=== PATIENT | female | born 1980 | race Caucasian/White ===

== ENCOUNTER 2018-05-14 14:38 | Emergency (ER) | payer OTHER, MEDICAID ==
[2018-05-14] MEDS: HYDROMORPHONE HCL 0.5 MG/ 0.5 ML SYRINGE (J1170 PER 1) IV ×2 (16:26→17:33)
[2018-05-14] MEDS: ONDANSETRON 4MG/2ML VIAL (J2405) IV (16:26)
[2018-05-14] MEDS: NS 1,000 ML IV (16:26)
[2018-05-14 16:35] LABS: HEMATOCRIT 38.5 % (36.0-47.0); HEMOGLOBIN 12.1 g/dl (12.0-15.5); MEAN CORPUSCULAR HEMOGLOBIN 31.1 pg (27.0-33.0); MEAN CORPUSCULAR HGB CONC 31.4 g/dl (32.0-36.5); PLATELET COUNT, AUTOMATED 375 10^3/uL (150-450); RED BLOOD COUNT 3.89 10^6/uL (4.00-5.40); RED CELL DISTRIBUTION WIDTH 13.8 % (11.5-14.5); WHITE BLOOD COUNT 7.7 10^3/uL (4.0-10.0)
[2018-05-14 17:02] LABS: ANION GAP 8 MEQ/L (8-16); BLOOD UREA NITROGEN 9 MG/DL (7-18); CALCIUM LEVEL 8.9 MG/DL (8.5-10.1); CARBON DIOXIDE LEVEL 26 MEQ/L (21-32); CHLORIDE LEVEL 108 MEQ/L (98-107); CREATININE FOR GFR 0.61 MG/DL (0.55-1.30); GLOMERULAR FILTRATION RATE > 60.0 (>60); GLUCOSE, FASTING 85 MG/DL (70-100); POTASSIUM SERUM 4.3 MEQ/L (3.5-5.1); SODIUM LEVEL 142 MEQ/L (136-145)
== END 2018-05-14 18:19 | disposition home or self-care (01) ==
LOC: M ED 14:38
DX: R51 Headache (principal); Z98.2 Presence of cerebrospinal fluid drainage device
CPT/HCPCS: J2405

== ENCOUNTER 2018-05-22 19:01 | Emergency (ER) | payer OTHER ==
[2018-05-22] MEDS: NS 1,000 ML IV (19:45)
[2018-05-22] MEDS: HYDROMORPHONE HCL 0.5 MG/ 0.5 ML SYRINGE (J1170 PER 1) IV ×2 (20:17→21:16)
[2018-05-22] MEDS: PROMETHAZINE INJ 25 MG/ML VIAL (J2550) IV (20:17)
[2018-05-22] MEDS: diphenhydrAMINE INJ 50MG/ML VIAL (J1200) IV (20:18)
[2018-05-22] MEDS: OXYCODONE/APAP 5MG/325MG(BULK FOR ED) 1 TABLET PO (22:30)
== END 2018-05-22 22:39 | disposition home or self-care (01) ==
LOC: M ED 19:01
DX: R51 Headache (principal); Z98.2 Presence of cerebrospinal fluid drainage device; G91.9 Hydrocephalus, unspecified; G93.89 Other specified disorders of brain; Z79.899 Other long term (current) drug therapy; Z88.6 Allergy status to analgesic agent; Z88.5 Allergy status to narcotic agent; Z88.8 Allergy status to other drugs, medicaments and biological substances
CPT/HCPCS: J1200

== ENCOUNTER 2018-05-31 15:42 | Emergency (ER) | payer OTHER ==
[2018-05-31 17:03] LABS: KETONE, URINE AUTO RFX NEGATIVE (NEGATIVE); NITRITE, URINE AUTO RFX NEGATIVE (NEGATIVE); RBC, URINE AUTO RFX 0 /HPF (0-3); SPECIFIC GRAVITY UR AUTO RFX 1.004 (1.002-1.035); SQUAM EPITHELIAL CELL UR AURFX 1 /HPF (0-6)
[2018-05-31] MEDS: diphenhydrAMINE INJ 50MG/ML VIAL (J1200) IV (17:06)
[2018-05-31 17:07] LABS: LEUKOCYTE ESTERASE UR AUTO RFX 2+ (NEGATIVE); WBC, URINE AUTO RFX 12 /HPF (0-3)
[2018-05-31] MEDS: NS 1,000 ML IV (17:07)
[2018-05-31] MEDS: HYDROMORPHONE HCL 0.5 MG/ 0.5 ML SYRINGE (J1170 PER 1) IV (17:12)
== END 2018-05-31 17:43 | disposition home or self-care (01) ==
LOC: M ED 15:42
DX: N30.90 Cystitis, unspecified without hematuria (principal); R51 Headache; F33.9 Major depressive disorder, recurrent, unspecified; G91.9 Hydrocephalus, unspecified; N80.9 Endometriosis, unspecified; Z98.2 Presence of cerebrospinal fluid drainage device; Z79.899 Other long term (current) drug therapy; Z79.3 Long term (current) use of hormonal contraceptives; Z88.1 Allergy status to other antibiotic agents; Z88.8 Allergy status to other drugs, medicaments and biological substances
CPT/HCPCS: J1200

== ENCOUNTER 2018-06-07 12:24 | Emergency (ER) | payer OTHER ==
[2018-06-07] MEDS: diazePAM 10 MG TAB PO (15:26)
== END 2018-06-07 15:52 | disposition home or self-care (01) ==
LOC: M ED 12:24
DX: G89.29 Other chronic pain (principal); M54.5 Low back pain; Z79.899 Other long term (current) drug therapy; Z88.1 Allergy status to other antibiotic agents; Z88.5 Allergy status to narcotic agent; Z88.8 Allergy status to other drugs, medicaments and biological substances
CPT/HCPCS: 99282

== ENCOUNTER 2018-06-16 18:40 | Emergency (ER) | payer OTHER ==
[2018-06-16 17:43] LABS: HEMATOCRIT 40.2 % (36.0-47.0); HEMOGLOBIN 12.7 g/dl (12.0-15.5); MEAN CORPUSCULAR HEMOGLOBIN 30.8 pg (27.0-33.0); MEAN CORPUSCULAR HGB CONC 31.6 g/dl (32.0-36.5); MEAN CORPUSCULAR VOLUME 97.3 fl (80.0-96.0); PLATELET COUNT, AUTOMATED 410 10^3/uL (150-450); RED BLOOD COUNT 4.13 10^6/uL (4.00-5.40); RED CELL DISTRIBUTION WIDTH 13.8 % (11.5-14.5); WHITE BLOOD COUNT 11.1 10^3/uL (4.0-10.0)
[2018-06-16] MEDS: HYDROMORPHONE HCL 0.5 MG/ 0.5 ML SYRINGE (J1170 PER 1) IV ×3 (17:47→19:22)
[2018-06-16 18:10] LABS: CONTROL LINE HCG INT CTR LINE PRESENT; HCG, SERUM QUALITATIVE NEGATIVE (NEGATIVE)
[2018-06-16 18:15] LABS: ANION GAP 4 MEQ/L (8-16); BLOOD UREA NITROGEN 7 MG/DL (7-18); CALCIUM LEVEL 9.2 MG/DL (8.5-10.1); CARBON DIOXIDE LEVEL 32 MEQ/L (21-32); CHLORIDE LEVEL 103 MEQ/L (98-107); CREATININE FOR GFR 0.71 MG/DL (0.55-1.30); GLOMERULAR FILTRATION RATE > 60.0 (>60); GLUCOSE, FASTING 90 MG/DL (70-100); POTASSIUM SERUM 4.2 MEQ/L (3.5-5.1); SODIUM LEVEL 139 MEQ/L (136-145)
[2018-06-16] MEDS: ONDANSETRON 4MG/2ML VIAL (J2405) IV (18:18)
[2018-06-16 19:22] LABS: APPEARANCE, URINE CLEAR (CLEAR); BACTERIA, URINE AUTO NEGATIVE (NEGATIVE); BILIRUBIN, URINE AUTO NEGATIVE (NEGATIVE); BLOOD, URINE BLOOD 1+ (NEGATIVE); COLOR, URINE STRAW (YELLOW); GLUCOSE, URINE (UA) AUTO NEGATIVE (NEGATIVE); KETONE, URINE AUTO NEGATIVE (NEGATIVE); LEUKOCYTE ESTERASE, URINE AUTO NEGATIVE (NEGATIVE); NITRITE, URINE AUTO NEGATIVE (NEGATIVE); PROTEIN, URINE AUTO NEGATIVE (NEGATIVE); RBC, URINE AUTO 1 /HPF (0-3); SPECIFIC GRAVITY URINE AUTO 1.006 (1.002-1.035); SQUAMOUS EPITHELIAL CELL UR AU 0 /HPF (0-6); UROBILINOGEN, URINE AUTO 0.2 mg/dL (0.0-2.0); WBC, URINE AUTO 0 /HPF (0-3)
[2018-06-16 19:46] LABS: AMPHETAMINES LEVEL URINE NEGATIVE (NEGATIVE); BARBITURATES URINE NEGATIVE (NEGATIVE); BENZODIAZEPINES URINE NEGATIVE (NEGATIVE); CANNABINOIDS URINE NEGATIVE (NEGATIVE); COCAINE METABOLITE URINE NEGATIVE (NEGATIVE); METHADONE URINE NEGATIVE (NEGATIVE); OPIATES URINE POSITIVE (NEGATIVE); PHENCYCLIDINE URINE NEGATIVE (NEGATIVE)
== END 2018-06-16 20:17 | disposition home or self-care (01) ==
LOC: M ED 18:40
DX: M54.5 Low back pain (principal); F33.9 Major depressive disorder, recurrent, unspecified; N80.9 Endometriosis, unspecified; Z98.2 Presence of cerebrospinal fluid drainage device; Z88.1 Allergy status to other antibiotic agents; Z88.5 Allergy status to narcotic agent; Z88.8 Allergy status to other drugs, medicaments and biological substances
CPT/HCPCS: J2405

== ENCOUNTER 2018-06-20 16:55 | Emergency (ER) | payer OTHER ==
[2018-06-20] MEDS: CYCLOBENZAPRINE 10 MG TAB PO (17:57)
[2018-06-20] MEDS: PERCOCET 5MG/325MG TAB PO (17:58)
== END 2018-06-20 18:17 | disposition home or self-care (01) ==
LOC: M ED 16:55
DX: R51 Headache (principal); M54.41 Lumbago with sciatica, right side; Z98.2 Presence of cerebrospinal fluid drainage device; Z79.899 Other long term (current) drug therapy; Z79.3 Long term (current) use of hormonal contraceptives; Z88.1 Allergy status to other antibiotic agents; Z88.5 Allergy status to narcotic agent; Z88.8 Allergy status to other drugs, medicaments and biological substances
CPT/HCPCS: 99282

== ENCOUNTER 2018-06-27 17:45 | Emergency (ER) | payer OTHER | END 2018-06-27 20:15 | disposition home or self-care (01) | LOC: M ED 20:15 | DX: M54.41 Lumbago with sciatica, right side (principal) | CPT/HCPCS: 99282 ==

== ENCOUNTER 2019-06-01 13:41 | Emergency (ER) | payer OTHER ==
[~2019-06-01] VITALS: Ht 165.1 cm; Wt 70.5 kg
[~2019-06-01 13:41] MED LIST: APAP500T10 PO; CYCL10TA PO; DIFL150T PO; DULO30CA9 PO; HYDR-3715 PO; MACR100C43 PO; MIGR4SPR NARES; OXYC1TAB23; OXYC1TAB23 PO; PERC5TAB12 PO; TOPA100T12 PO; TRINTAB PO; VALT1TAB; WELLTAB38 PO
[2019-06-01] MEDS ORDERED: PERCOCET 5MG/325MG TAB PO ONE (14:45)
--- NOTE | 2019-06-01 15:16 | REP ---
CT of the head without contrast Indication: Fall with head injury. Comparison: CT head 05/31/2018. Technique: Axial CT of the head was performed without contrast. Findings: A a right posterior approach AP catheter terminates within the right lateral ventricle, similar to prior. Ventricular dilatation is unchanged. There is no visible soft tissue swelling or calvarial fracture. There is hypodensity along the tract extending from the old right frontal abhilash hole, like of the representing encephalomalacia along the old DRONE PILOT shunt tract. There is no evidence of acute intracranial hemorrhage or extra-axial fluid collection. [place]-white matter differentiation is maintained. There is no mass effect or midline shift. The basal cisterns are patent. Cerebellar tonsils are low-lying, similar to prior. The visualized paranasal sinuses and mastoid air cells are clear. Impression: No acute intracranial abnormality. Right posterior approach DRONE PILOT shunt catheter terminates within the right lateral ventricle, similar to prior. Stable ventriculomegaly. Electronically Signed by Caitlyn Carney MD 06/01/2019 03:08 P
--- NOTE | 2019-06-01 15:36 | REP ---
Left humerus three views: AP view of the chest is inadvertently included with the series. Left humerus demonstrate normal mineralization. There is no fracture or dislocation. There are no calcifications or foreign bodies. Impression: Negative left humerus. PA chest: Lung lezama are clear. Cardiac size normal. The juve, mediastinum, skeletal structures are unremarkable. [employer]GER shunt tubing superimposed over the right hemithorax with no evidence of kinking. Electronically Signed by Larry Pinto MD 06/01/2019 03:28 P
--- NOTE | 2019-06-01 15:53 | REP ---
[employer]EMENT [employer] shunt series: Six views. History: HOME IM[employer]OVEMENT [employer]OR shunt evaluation. The patient is status post a fall with head injury. Comparison study: May 31, 2018. Findings: A right occipitoparietal ventricular peritoneal shunt catheter seen in place. No shunt tube discontinuity is seen. No skull fracture is visible. The shunt catheter is seen in the right anterior paramedian precordial soft tissues. Abdominal images demonstrate intact intraperitoneal segment of the shunt terminating in the right pelvis. Bowel gas pattern is normal. The lung lezama are clear. Impression: Unremarkable HOME IM[employer]OVEMENT [employer]OR shunt series radiographs. No discontinuity seen. Electronically Signed by Tariq Sharp MD 06/01/2019 04:51 P
[2019-06-01] MEDS ORDERED: PERC5TAB12 PO (16:12)
[2019-06-01 16:26] VITALS: BP 141/94
== END 2019-06-01 16:28 | disposition home or self-care (01) ==
LOC: M ED 13:41
DX: S09.90XA Unspecified injury of head, initial encounter (principal); S40.022A Contusion of left upper arm, initial encounter; W01.198A Fall on same level from slipping, tripping and stumbling with subsequent striking against other object, initial encounter; Y92.093 Driveway of other non-institutional residence as the place of occurrence of the external cause; Y93.01 Activity, walking, marching and hiking; G91.9 Hydrocephalus, unspecified; Z98.2 Presence of cerebrospinal fluid drainage device; Z88.8 Allergy status to other drugs, medicaments and biological substances; Z88.5 Allergy status to narcotic agent; Z88.6 Allergy status to analgesic agent; Z88.1 Allergy status to other antibiotic agents; Z79.899 Other long term (current) drug therapy; Z79.3 Long term (current) use of hormonal contraceptives